=== PATIENT | female | born 1995 | race Caucasian/White ===

== ENCOUNTER 2021-09-27 19:50 | Emergency (ER) | payer OTHER, SELFPAY ==
--- NOTE | 2021-09-27 | ECG_ITS ---
Test Reason : CHEST PAIN Blood Pressure : / mmHG Vent. Rate : 067 BPM Atrial Rate : 067 BPM P-R Int : 158 ms QRS Dur : 078 ms QT Int : 398 ms P-R-T Axes : 026 032 020 degrees QTc Int : 420 ms Normal sinus rhythm with sinus arrhythmia Normal ECG No previous ECGs available Referred By: Generic ED Physician Electronically Signed By:SIDNEY CATES MD
--- NOTE | ~2021-09-27 | XR_ITS ---
EXAMINATION: XR CHEST CLINICAL INFORMATION: Chest pain COMPARISON: None TECHNIQUE: 2 views of the chest were obtained. FINDINGS: No significant abnormality is noted involving the heart, lungs, mediastinum, bony thorax or soft tissues. XR/XR chest 2V IMPRESSION: Unremarkable examination.
[2021-09-27 20:52] VITALS: BP 102/65; PULSE 66; RESP 16; TEMP 36.8; O2SAT 99; BMI 30.7
[2021-09-27 21:15] LABS: MANUAL DIFF FLAG NO
[2021-09-27 21:16] LABS: Basophils Percent Auto 0.6 % (0-2); Eosinophils Absolute Auto 0.1 X10*3/uL (0.0-0.4); Hematocrit 37.6 % (37.0-47.0); Hemoglobin 12.4 g/dl (12.0-16.0); Imm Gran Abs Auto 0.01 X10*3/uL (0.00-0.03); Imm Gran Pct Auto 0.1 % (0.0-0.4); Lymphocytes Percent Auto 44.8 % (20-40); Mean Corpuscular Hemoglobin 30.2 pg (27.0-33.0); Mean Corpuscular Volume 91.7 fL (80.0-98.0); Mean Platelet Volume 10.3 fL (9.4-12.3); Monocytes Absolute Auto 0.4 X10*3/uL (0.1-1.2); Monocytes Percent Auto 5.5 % (2-11); Neutrophils Absolute Auto 3.2 x10*3/uL (2.0-8.3); Platelet Count 289 X10*3/uL (160-400); Red Cell Distribution Width 12.8 % (11.0-16.0); White Blood Count 6.7 X10*3/uL (4.8-10.8)
[2021-09-27 21:30] LABS: COVID-19 Test Negative (Negative)
[2021-09-27 21:34] LABS: Alanine Aminotransferase 8 U/L (0-31); Albumin Level 4.2 g/dL (3.5-5.0); Alkaline Phosphatase 95 U/L (39-117); Anion Gap 12 (12-20); Aspartate Amino Transferase 15 U/L (5-31); Bilirubin Total 0.3 mg/dL (0.0-1.0); Blood Urea Nitrogen 16 mg/dL (9-16); Calcium 9.3 mg/dL (8.4-10.2); Carbon Dioxide 25 mmol/L (22-29); Chloride 107 mmol/L (96-108); Creatinine Clr Calc Pharmacy 106.3; Estimated Glomerular Filt Rate > 60; Glucose Random 88 mg/dL (60-115); Potassium 4.4 mmol/L (3.3-5.1); Sodium 140 mmol/L (135-145); Total Protein 6.9 g/dL (6.5-8.0)
[2021-09-27 21:36] LABS: Troponin-I High Sensitivity < 3.5 ng/L (<3.5-17.0)
[2021-09-27 22:55] LABS: HCG Quantitative < 2 mIU/mL
--- NOTE | 2021-09-27 23:09 | ED_ITS ---
HPI - General Adult General Chief complaint: General Medical Stated complaint: chest pain, vomiting, dizziness Time Seen by Provider: 09/27/21 22:03 Source: patient Mode of arrival: ambulatory Limitations: no limitations History of Present Illness HPI narrative: 26-year-old female presents for approximately 2 months of chest pain that feels like a squeezing tightness around her heart and throughout her lungs. States that she has been out of her medications, has asthma, and does not have an established primary care physician she was evaluated at urgent care earlier today refer to emergency department for further evaluation. She also complains of left lower extremity pain. Onset (ago): month(s) (2) Location: chest, left and lower extremity Radiation: non-radiation Severity: severe Severity scale (1-10): 10 Quality: stabbing and crushing Pain Consistency: intermittent Relieving factors: none Exacerbating factors: none Associated symptoms: denies other symptoms Treatments prior to arrival: none Related Data Previous Rx's Medication Instructions Recorded albuterol sulfate 90 mcg/actuation 2 puff INHALATION Q4-6H PRN #8.5 g 09/28/21 aerosol inhaler escitalopram oxalate 20 mg tablet 30 mg PO DAILY 30 Days #45 tab 09/28/21 (Lexapro) quetiapine 100 mg tablet (Seroquel) 150 mg PO BEDTIME 30 Days #45 tab 09/28/21 Allergies Allergy/AdvReac Type Severity Reaction Status Date / Time acetaminophen Allergy Hives Verified 09/27/21 20:52 sulfamethoxazole Allergy Hives Verified 09/27/21 20:52 [From Bactrim] trimethoprim [From Bactrim] Allergy Hives Verified 09/27/21 20:52 Review of Systems Review of Systems: Constitutional: No Weight loss, No Fever, No Chills, No Night Sweats, No Fatigue, No Malaise ENT/Mouth: No Hearing loss, No Ear Pain, No Nasal Congestion, No Sinus Pain, No Hoarseness, No sore throat, No Rhinorrhea, No Swallowing Difficulty Eyes: No Eye Pain, No Swelling, No Redness, No Foreign Body, No Discharge, No Vision Changes Cardiovascular: Positive Chest Pain, no SOB, no Dyspnea on Exertion, No Orthopnea, No Edema, positive Palpitations Respiratory: No Cough, No Sputum, No Wheezing, No Smoke Exposure, No Dyspnea Gastrointestinal: No Nausea, No Vomiting, No Diarrhea, No abdominal Pain, No Hematochezia, No Melena Genitourinary: No irregular bleeding, No Dysuria, No Urinary Frequency, No Hematuria, No Urinary Incontinence, No Urgency, No Flank Pain, No Urinary Flow Changes, No Hesitancy Musculoskeletal: Positive lower extremities pain, No joint pain, No Myalgias, No Joint Swelling Skin: No Skin Lesions, No rash Neuro: No Weakness, No Numbness, No Paresthesias, No Loss of Consciousness, No Dizziness, No Headache Psych: No Anxiety/Panic, No Depression, No SI/HI/AH/VH Heme/Lymph: No Bruising, No Bleeding,No Lymphadenopathy Endocrine: No Polyuria, No Polydipsia, No Temperature Intolerance Yes all other systems are reviewed and are negative [facility] Past Medical History Attestation statement: The following information was validated with the patient. Source: old records reviewed Medical History Asthma Insomnia Social History Social History Patient Tobacco Use Status: Never used Tobacco Use of substances other than those prescribed or required for medical reasons: No Advance Directives: No Advance Directives Information Provided: Yes Patient : No Physical Exam ED Vital Signs: Vital Signs - 24 hr 09/27/21 20:52 Temperature 98.3 F Pulse Rate 66 Respiratory Rate 16 Blood Pressure 102/65 Pulse Oximetry 99 BMI result Body Mass Index 30.7 Appearance: Alert. Oriented X3. No acute distress. Eyes: Pupils equal, round and reactive to light. EOMI. Sclera nonicteric. ENT: Pharynx normal. Moist mucous membranes. Neck: Normal inspection. Neck supple. No vertebral tenderness. No nuchal rigidity. CVS: Normal heart rate and rhythm. Pulses normal. Reproducible chest wall tenderness to palpation. Respiratory: No respiratory distress. Lung sounds clear to auscultation all lobes. No pain on inspiration. Abdomen: Soft and tender to palpation throughout. No rigidity, rebound, or distention noted. Skin: Skin warm and dry. Normal skin color. Normal skin turgor. Extremities: No lower extremity edema. Gait well-balanced well coordinated. Moves all extremities against resistance. Strength 5/5. Neuro: No motor deficit. No sensory deficit. Cranial nerves 2-12 intact. Course Course Course Narrative: 26-year-old female presents for squeezing stabbing chest pain that has been present for approximately 2 months. Also reports left lateral lower extremity pain, feels like a vessel is on fire radiating from her malleolar process up to her knee. Does not report any swelling. Was evaluated at urgent care earlier today then referred to the emergency department for further evaluation. EKG and labs drawn while patient was in the emergency department waiting room. Will add on influenza, D-dimer, and urinalysis. Heart score 0. Wells PE score 0. 00:31 chest x-ray is negative. D-dimer is negative. Influenza negative. Will discharge home with referrals for Primary Care, pulmonology and refill her prescriptions for Lexapro.Patient verbalized understanding of and agrees to plan of care to discharge home. Verbalized understanding of signs and symptoms indicating need for emergent intervention Medical Decision Making MDM Narrative Medical decision making narrative: PE Differential Diagnosis Differential Diagnosis: Asthma, costochondritis, rib fracture, pneumo, anxiety, influenza, COVID Medical Records Medical records reviewed: Yes I reviewed the patient's medical records. Lab Data Lab results reviewed: Yes I reviewed the patient's lab results. Result diagrams: 09/27/21 21:09 09/27/21 21:09 Labs: Lab Results 09/27/21 09/27/21 09/27/21 Range/Units 21:09 21:09 21:09 WBC 6.7 (4.8-10.8) X10*3/uL RBC 4.10 L (4.20-5.50) X10*6/uL Hgb 12.4 (12.0-16.0) g/dl Hct 37.6 (37.0-47.0) % MCV 91.7 (80.0-98.0) fL MCH 30.2 (27.0-33.0) pg MCHC 33.0 (31.0-35.0) g/dl RDW 12.8 (11.0-16.0) % Plt Count 289 (160-400) X10*3/uL MPV 10.3 (9.4-12.3) fL Immature Gran % (Auto) 0.1 (0.0-0.4) % Neut % (Auto) 48.0 (45-73) % Lymph % (Auto) 44.8 H (20-40) % [place] % (Auto) 5.5 (2-11) % Eos % (Auto) 1.0 (0-4) % Baso % (Auto) 0.6 (0-2) % Lymph # (Auto) 3.0 (1.2-4.9) X10*3/uL [place] # (Auto) 0.4 (0.1-1.2) X10*3/uL Eos # (Auto) 0.1 (0.0-0.4) X10*3/uL Baso # (Auto) 0.0 (0.0-0.2) X10*3/uL Abs Immat Gran (auto) 0.01 (0.00-0.03) X10*3/uL Absolute Neuts (auto) 3.2 (2.0-8.3) x10*3/uL Absolute Nucleated RBC 0.000 (0.0-0.012) X10*3/uL Nucleated RBC % (auto) 0.0 (0.0-0.2) /100WBC D-Dimer High Sensitivty NG/ML Sodium 140 (135-145) mmol/L Potassium 4.4 (3.3-5.1) mmol/L Chloride 107 (96-108) mmol/L Carbon Dioxide 25 (22-29) mmol/L Anion Gap 12 (12-20) BUN 16 (9-16) mg/dL Creatinine 0.75 (0.5-1.4) mg/dL Estim Creat Clear Calc 106.3 Estimated GFR > 60 Random Glucose 88 (60-115) mg/dL Calcium 9.3 (8.4-10.2) mg/dL Total Bilirubin 0.3 (0.0-1.0) mg/dL AST 15 (5-31) U/L ALT 8 (0-31) U/L Alkaline Phosphatase 95 (39-117) U/L Troponin I High Sens < 3.5 (<3.5-17.0) ng/L Total Protein 6.9 (6.5-8.0) g/dL Albumin 4.2 (3.5-5.0) g/dL Beta HCG, Quant < 2 mIU/mL Urine Color Urine Appearance Urine pH (5.0-8.0) Ur Specific [place] (1.005-1.025) Urine Protein (NEG-TRACE) MG/DL Urine Glucose (UA) (NEG) MG/DL Urine Ketones (NEG) MG/DL Urine Blood (NEG) Urine Nitrite (NEG) Ur Leukocyte Esterase (NEG) Urine RBC (0) /HPF Urine WBC (0-4) /HPF Ur Squamous Epith Cells /LPF Urine Bacteria /LPF COVID-19 (CHARLENE) (Negative) COVID-19 Clin Com Influenza Type A (DORON) (Negative) Influenza Type B (DORON) (Negative) Influenza A & B Note 09/27/21 09/27/21 09/27/21 Range/Units 21:09 23:41 23:51 WBC (4.8-10.8) X10*3/uL RBC (4.20-5.50) X10*6/uL Hgb (12.0-16.0) g/dl Hct (37.0-47.0) % MCV (80.0-98.0) fL MCH (27.0-33.0) pg MCHC (31.0-35.0) g/dl RDW (11.0-16.0) % Plt Count (160-400) X10*3/uL MPV (9.4-12.3) fL Immature Gran % (Auto) (0.0-0.4) % Neut % (Auto) (45-73) % Lymph % (Auto) (20-40) % [place] % (Auto) (2-11) % Eos % (Auto) (0-4) % Baso % (Auto) (0-2) % Lymph # (Auto) (1.2-4.9) X10*3/uL [place] # (Auto) (0.1-1.2) X10*3/uL Eos # (Auto) (0.0-0.4) X10*3/uL Baso # (Auto) (0.0-0.2) X10*3/uL Abs Immat Gran (auto) (0.00-0.03) X10*3/uL Absolute Neuts (auto) (2.0-8.3) x10*3/uL Absolute Nucleated RBC (0.0-0.012) X10*3/uL Nucleated RBC % (auto) (0.0-0.2) /100WBC D-Dimer High Sensitivty < 150 NG/ML Sodium (135-145) mmol/L Potassium (3.3-5.1) mmol/L Chloride (96-108) mmol/L Carbon Dioxide (22-29) mmol/L Anion Gap (12-20) BUN (9-16) mg/dL Creatinine (0.5-1.4) mg/dL Estim Creat Clear Calc Estimated GFR Random Glucose (60-115) mg/dL Calcium (8.4-10.2) mg/dL Total Bilirubin (0.0-1.0) mg/dL AST (5-31) U/L ALT (0-31) U/L Alkaline Phosphatase (39-117) U/L Troponin I High Sens (<3.5-17.0) ng/L Total Protein (6.5-8.0) g/dL Albumin (3.5-5.0) g/dL Beta HCG, Quant mIU/mL Urine Color Urine Appearance Urine pH (5.0-8.0) Ur Specific [place] (1.005-1.025) Urine Protein (NEG-TRACE) MG/DL Urine Glucose (UA) (NEG) MG/DL Urine Ketones (NEG) MG/DL Urine Blood (NEG) Urine Nitrite (NEG) Ur Leukocyte Esterase (NEG) Urine RBC (0) /HPF Urine WBC (0-4) /HPF Ur Squamous Epith Cells /LPF Urine Bacteria /LPF COVID-19 (CHARLENE) Negative (Negative) COVID-19 Clin Com See Note Influenza Type A (DORON) Negative (Negative) Influenza Type B (DORON) Negative (Negative) Influenza A & B Note See Note 09/27/21 Range/Units 23:51 WBC (4.8-10.8) X10*3/uL RBC (4.20-5.50) X10*6/uL Hgb (12.0-16.0) g/dl Hct (37.0-47.0) % MCV (80.0-98.0) fL MCH (27.0-33.0) pg MCHC (31.0-35.0) g/dl RDW (11.0-16.0) % Plt Count (160-400) X10*3/uL MPV (9.4-12.3) fL Immature Gran % (Auto) (0.0-0.4) % Neut % (Auto) (45-73) % Lymph % (Auto) (20-40) % [place] % (Auto) (2-11) % Eos % (Auto) (0-4) % Baso % (Auto) (0-2) % Lymph # (Auto) (1.2-4.9) X10*3/uL [place] # (Auto) (0.1-1.2) X10*3/uL Eos # (Auto) (0.0-0.4) X10*3/uL Baso # (Auto) (0.0-0.2) X10*3/uL Abs Immat Gran (auto) (0.00-0.03) X10*3/uL Absolute Neuts (auto) (2.0-8.3) x10*3/uL Absolute Nucleated RBC (0.0-0.012) X10*3/uL Nucleated RBC % (auto) (0.0-0.2) /100WBC D-Dimer High Sensitivty NG/ML Sodium (135-145) mmol/L Potassium (3.3-5.1) mmol/L Chloride (96-108) mmol/L Carbon Dioxide (22-29) mmol/L Anion Gap (12-20) BUN (9-16) mg/dL Creatinine (0.5-1.4) mg/dL Estim Creat Clear Calc Estimated GFR Random Glucose (60-115) mg/dL Calcium (8.4-10.2) mg/dL Total Bilirubin (0.0-1.0) mg/dL AST (5-31) U/L ALT (0-31) U/L Alkaline Phosphatase (39-117) U/L Troponin I High Sens (<3.5-17.0) ng/L Total Protein (6.5-8.0) g/dL Albumin (3.5-5.0) g/dL Beta HCG, Quant mIU/mL Urine Color YELLOW Urine Appearance CLEAR Urine pH 6.0 (5.0-8.0) Ur Specific [place] 1.020 (1.005-1.025) Urine Protein NEG (NEG-TRACE) MG/DL Urine Glucose (UA) NEG (NEG) MG/DL Urine Ketones NEG (NEG) MG/DL Urine Blood 3+ H (NEG) Urine Nitrite NEG (NEG) Ur Leukocyte Esterase NEG (NEG) Urine RBC 1-4 (0) /HPF Urine WBC 0-2 (0-4) /HPF Ur Squamous Epith Cells TRACE /LPF Urine Bacteria NONE /LPF COVID-19 (CHARLENE) (Negative) COVID-19 Clin Com Influenza Type A (DORON) (Negative) Influenza Type B (DORON) (Negative) Influenza A & B Note Imaging Data Chest x-ray: Attestation: I personally reviewed and interpreted this imaging study as follows: Radiologist's impression: EXAMINATION: XR CHEST CLINICAL INFORMATION: Chest pain COMPARISON: None TECHNIQUE: 2 views of the chest were obtained. FINDINGS: No significant abnormality is noted involving the heart, lungs, mediastinum, bony thorax or soft tissues. XR/XR chest 2V IMPRESSION: Unremarkable examination. ECG Data Attestation: I personally reviewed and interpreted this ECG as follows: Prior ECG tracings: not available for review Interpretation: Ventricular rate 67, HI 158, QRS 78, QT 398, QTC 420 normal sinus rhythm with sinus arrhythmia normal EKG. No indication of ST depression or elevation. Date 09/27/2021 time 20:01 Scores Heart Score History: -0- slightly suspicious ECG: -0- normal Age: -0- < or = 45 Risk factory: -0- no risk factors known Troponin: -0- < or = normal limit Score: 0 Risk: 1.7% Discharge Plan Discharge Clinical Impression: Non-cardiac chest pain Patient Disposition: Home, Self-Care Instructions: Noncardiac Chest Pain (ED) Additional Instructions: You were evaluated for chest and leg pain. D-dimer is negative. Highly unlikely to have any blood clots. Chest x-ray is normal. EKG is normal sinus rhythm. Cardiac enzymes are negative. Low likely cardiac ischemia at this time. Influenza and COVID are negative. I refilled her medications. Please take them as directed. Follow-up with Dr. Gonzalez for primary care. Please follow-up with Dr. 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 Thank you for choosing this emergency department for evaluation. Please follow-up with primary care physician as needed. Return to the emergency department for any new, concerning, or worsening symptoms. Prescriptions: New escitalopram oxalate [Lexapro] 20 mg tablet 30 mg PO DAILY 30 Days Qty: 45 3RF quetiapine [Seroquel] 100 mg tablet 150 mg PO BEDTIME 30 Days Qty: 45 3RF albuterol sulfate 90 mcg/actuation HFA aerosol inhaler 2 puff inhalation Q4-6H PRN (Reason: shortness of breath or wheezing) Qty: 8.5 3RF Referrals: Marito Gonzalez MD [Physician] - (Needs primary care) Bryon Holland MD [Physician] - (Uncontrolled asthma) Stand Alone Forms: Work/School Release
[2021-09-28] VITALS: BP 131/79; PULSE 59; RESP 16; TEMP 36.6; O2SAT 98
[2021-09-28 00:05] LABS: Appearance Urine CLEAR; Color Urine YELLOW; Glucose Urine UA NEG (NEG); Leukocyte Esterase Urine NEG (NEG); Nitrite Urine NEG (NEG); UACC Culture Trigger NO; Urine Blood 3+ (NEG); Urine Ketones NEG (NEG); Urine Protein NEG (NEG-TRACE)
[2021-09-28 00:12] LABS: D Dimer High Sensitivity < 150 NG/ML
[2021-09-28 00:24] LABS: WBC Urine 0-2 /HPF (0-4)
[2021-09-28 00:24] LABS: Influenza A Negative (Negative); Influenza B2 Negative (Negative)
[2021-09-28 00:25] LABS: Squamous Epithelial Cell Urine TRACE /LPF
--- NOTE | 2021-09-28 00:28 | PC.NURSE ---
pt is a&o, no sob or chest pain, pt reports dizziness has improved. Pt is sitting upright in bed with no sign of distress.
== END 2021-09-28 00:58 | disposition home or self-care (01) ==
PROVIDERS: Nurse Practitioner Family; Student in an Organized Health Care Education/Training Program; Emergency Provider Internal Medicine
DX: R07.89 Other chest pain (principal); R11.10 Vomiting, unspecified; R42 Dizziness and giddiness; Z20.822 Contact with and (suspected) exposure to COVID-19; Z79.899 Other long term (current) drug therapy
CPT/HCPCS: 36415; 71046; 80053; 81001; 81003; 84484; 84702; 85025; 85379; 87502; 87635; 93005; 99283; 99284

== ENCOUNTER 2021-10-25 15:04 | Outpatient (REF) | payer OTHER, SELFPAY ==
[2021-10-25 16:08] LABS: MANUAL DIFF FLAG NO
[2021-10-25 16:25] LABS: Basophils Percent Auto 0.5 % (0-2); Eosinophils Absolute Auto 0.1 X10*3/uL (0.0-0.4); Eosinophils Percent Auto 0.6 % (0-4); Hematocrit 37.7 % (37.0-47.0); Hemoglobin 12.9 g/dl (12.0-16.0); Imm Gran Abs Auto 0.02 X10*3/uL (0.00-0.03); Imm Gran Pct Auto 0.3 % (0.0-0.4); Lymphocytes Absolute Auto 2.8 X10*3/uL (1.2-4.9); Lymphocytes Percent Auto 35.6 % (20-40); Mean Corpuscular HGB Conc 34.2 g/dl (31.0-35.0); Mean Corpuscular Hemoglobin 30.1 pg (27.0-33.0); Mean Corpuscular Volume 88.1 fL (80.0-98.0); Mean Platelet Volume 10.4 fL (9.4-12.3); Monocytes Absolute Auto 0.6 X10*3/uL (0.1-1.2); Monocytes Percent Auto 7.1 % (2-11); Neutrophils Absolute Auto 4.4 x10*3/uL (2.0-8.3); Neutrophils Percent Auto 55.9 % (45-73); Platelet Count 296 X10*3/uL (160-400); Red Blood Count 4.28 X10*6/uL (4.20-5.50); Red Cell Distribution Width 12.3 % (11.0-16.0); White Blood Count 7.8 X10*3/uL (4.8-10.8)
[2021-10-25 17:01] LABS: TSH reflex Free T4 1.73 uIU/mL (0.32-4.0)
[2021-10-25 17:07] LABS: Erythrocyte Sedimentation Rate 7 MM/HR (0-20)
[2021-10-30 14:41] LABS: Asperg fumigatus Precip Abs NEGATIVE (NEGATIVE); Micropoly faeni Abs NEGATIVE (NEGATIVE); Pigeon serum Abs NEGATIVE (NEGATIVE); Saccharo pora viridis Abs NEGATIVE (NEGATIVE); Thermo candidus Abs NEGATIVE (NEGATIVE); Thermoa vulgaris #1 NEGATIVE (NEGATIVE)
== END 2021-10-25 15:05 | disposition home or self-care (01) ==
LOC: HO.LAB 15:04
PROVIDERS: PCP Hospitalist; Visit Provider Hospitalist
DX: R07.81 Pleurodynia (principal); R91.8 Other nonspecific abnormal finding of lung field; R68.89 Other general symptoms and signs; J45.40 Moderate persistent asthma, uncomplicated
CPT/HCPCS: 36415; 82785; 84443; 85025; 85652; 86003; 86331; 86606; 86609

== ENCOUNTER 2021-11-11 10:35 | Emergency (ER) | payer OTHER, SELFPAY ==
[2021-11-11] VITALS (8 sets, daily range): BP systolic 112–129; BP diastolic 63–77; PULSE 61–72; RESP 16–18; TEMP 36.7–36.9; O2SAT 98–100; BMI 29.1
--- NOTE | ~2021-11-11 | XR_ITS ---
EXAMINATION: XR CHEST CLINICAL INFORMATION: Shortness of breath. Chest pain. COMPARISON: 09/27/2021 TECHNIQUE: Frontal view of the chest was obtained. FINDINGS: The lungs are well expanded. There is no focal consolidation, edema, or effusion. No pneumothorax. The cardiomediastinal silhouette is within normal limits. No acute osseous abnormality. XR/XR chest 1V IMPRESSION: Clear lungs.
--- NOTE | ~2021-11-11 | CT_ITS ---
EXAMINATION: CT ABDOMEN AND PELVIS WITHOUT CONTRAST CLINICAL INFORMATION: Left lower quadrant/epigastric abdominal pain. Nausea, vomiting, diarrhea. COMPARISON: None TECHNIQUE: Multidetector volumetric imaging was performed from the superior aspect of the liver through the pubic symphysis. Sagittal and coronal reformatted images were obtained on the technologist's workstation. This CT examination was performed using dose optimization techniques as appropriate, variously including the following: *Automated exposure control *Adjustment of mA and/or kV according to patient size (this includes techniques or standardized protocols for targeted exams where dose is matched to indication/reason for exam; i.e. extremities or head) *Use of iterative reconstruction technique DLP: 581 mGy-cm FINDINGS: LUNG BASES: The visualized lung bases are unremarkable. LIVER, GALLBLADDER, AND BILIARY TREE: The liver is normal in size, shape, and attenuation. No focal hepatic lesion or biliary ductal dilatation is present. The gallbladder is unremarkable with no evidence of radiopaque gallstones, gallbladder wall thickening, or obvious pericholecystic inflammatory changes. PANCREAS: Unremarkable. SPLEEN: Unremarkable. ADRENAL GLANDS: Unremarkable. KIDNEYS AND URETERS: The kidneys are normal in size, shape, and attenuation. No hydronephrosis, hydroureter, or calculi seen. No perinephric stranding. BLADDER: Unremarkable. GASTROINTESTINAL TRACT: The stomach is unremarkable. Normal caliber small bowel. No obstruction. No colonic wall thickening or inflammatory change. Normal appendix. No free air or free fluid. ABDOMINAL WALL: No significant hernia is appreciated. LYMPH NODES: Normal. VASCULAR: Unremarkable. PELVIC VISCERA: Retroverted uterus. No adnexal mass. OSSEOUS STRUCTURES: No acute or suspicious osseous abnormality. CT/CT abdomen pelvis wo con IMPRESSION: No acute findings in the abdomen or pelvis. No inflammatory changes. Normal appendix. Fleischner guidelines were followed.
--- NOTE | 2021-11-11 11:01 | ECG_ITS ---
Test Reason : abd and chest pain Blood Pressure : / mmHG Vent. Rate : 061 BPM Atrial Rate : 061 BPM P-R Int : 146 ms QRS Dur : 078 ms QT Int : 400 ms P-R-T Axes : 054 038 028 degrees QTc Int : 402 ms Sinus rhythm with marked sinus arrhythmia Otherwise normal ECG When compared with ECG of 27-SEP-2021 20:01, No significant change was found Referred By: Generic ED Physician Electronically Signed By:SIDNEY CATES MD
[2021-11-11 11:17] LABS: Hematocrit 38.5 % (37.0-47.0); Mean Corpuscular HGB Conc 33.8 g/dl (31.0-35.0); Mean Corpuscular Hemoglobin 30.4 pg (27.0-33.0); Mean Platelet Volume 10.2 fL (9.4-12.3); Platelet Count 286 X10*3/uL (160-400); Red Blood Count 4.28 X10*6/uL (4.20-5.50); Red Cell Distribution Width 12.5 % (11.0-16.0); White Blood Count 5.7 X10*3/uL (4.8-10.8)
[2021-11-11 11:33] LABS: Anion Gap 14 (12-20); Blood Urea Nitrogen 15 mg/dL (9-16); Calcium 9.7 mg/dL (8.4-10.2); Carbon Dioxide 25 mmol/L (22-29); Chloride 105 mmol/L (96-108); Creatinine Clr Calc Pharmacy 102.1; Estimated Glomerular Filt Rate > 60; Glucose Random 95 mg/dL (60-115); Lipase 10 U/L (8-78); Potassium 4.6 mmol/L (3.3-5.1); Sodium 139 mmol/L (135-145)
--- NOTE | 2021-11-11 13:08 | PC.NURSE ---
Pt comes in with complaints of LLQ abd pain, N/V/D x 3 weeks, sent from urgent care for multiple complaints, saw new PCP on 11/03 and states she isn't calling her back and she is waiting for blood work scripts as well as specialists to follow up with. Pt appears very anxious, states she thinks something is wrong with her thyroid and would like us to do blood work for it since her PCP isn't answering her calls. Pt is A&Ox4, TTP in LLQ only at this time. Report to Manju JACKSON.
[2021-11-11] MEDS: 0.9 % Sodium Chloride 1,000 ML 999 ML IV ×2 (13:35→15:30)
[2021-11-11] MEDS: ondansetron HCL 4 MG/2 ML VIAL IVPUSH (13:37)
--- NOTE | 2021-11-11 13:37 | ED_ITS ---
HPI - General Adult General Chief complaint: Abdominal Pain Stated complaint: abd and chest pain Time Seen by Provider: 11/11/21 13:11 Source: patient Mode of arrival: ambulatory History of Present Illness HPI narrative: 26-year-old female with a past medical history of asthma, insomnia, pleuritic chest pain, cold intolerance, presenting to the ED complaining of chest pain, shortness of breath, abdominal pain, lightheadedness/generalized fatigue x months, and nausea, vomiting, and nonbloody diarrhea x3 weeks. Also reports subjective fever and chills, and unintentional weight loss over the past 6 months. Denies headache, constipation, dysuria/hematuria, recent travel, suspicious food intake. LMP 11/05 Onset (ago): month(s) Related Data Previous Rx's Medication Instructions Recorded albuterol sulfate 90 mcg/actuation 2 puff INHALATION Q4-6H PRN #8.5 g 09/28/21 aerosol inhaler escitalopram oxalate 20 mg tablet 30 mg PO DAILY 30 Days #45 tab 09/28/21 (Lexapro) quetiapine 100 mg tablet (Seroquel) 150 mg PO BEDTIME 30 Days #45 tab 09/28/21 fluticasone furoate 200 1 inh INHALATION DAILY 30 Days #60 10/25/21 mcg-vilanterol 25 mcg/dose ea inhalation powder (Breo Ellipta) lidocaine 5 % topical patch 1 patch TOPICAL DAILY 30 Days #30 10/25/21 (Lidoderm) ea prednisone 20 mg tablet See Rx Instructions PO DAILY 10 11/10/21 Days #15 tab ondansetron 4 mg disintegrating 4 mg PO Q8H PRN #10 tab 11/11/21 tablet Allergies Allergy/AdvReac Type Severity Reaction Status Date / Time acetaminophen Allergy Hives Verified 11/03/21 14:35 sulfamethoxazole Allergy Hives Verified 11/03/21 14:35 [From Bactrim] trimethoprim [From Bactrim] Allergy Hives Verified 11/03/21 14:35 Review of Systems Review of Systems: Constitutional: + Weight loss, +Subj Fever, + Chills, No Night Sweats, + Fatigue, + Malaise ENT/Mouth: No Ear Pain, No Nasal Congestion, No Sinus Pain, No sore throat, No Rhinorrhea, No Swallowing Difficulty Eyes: No Eye Pain, No Swelling, No Vision Changes Cardiovascular: + Chest Pain, + SOB, No Dyspnea on Exertion, No Orthopnea, No Edema, No Palpitations Respiratory: No Cough, No Sputum, No Wheezing, No Dyspnea Gastrointestinal: + Nausea, + Vomiting, + Diarrhea, No Constipation, + Abdominal pain, No Hematochezia, No Melena Genitourinary: No irregular bleeding, No Dysuria, No Urinary Frequency, No Hematuria, No Flank Pain, No Urinary Flow Changes, No Hesitancy Musculoskeletal: No joint pain, No Myalgias, No Joint Swelling Skin: No Skin Lesions, No rash Neuro: + Weakness, No Numbness, No Paresthesias, No Loss of Consciousness, + lightheadedness, No Headache Psych: No Anxiety/Panic, No Depressin, Yes all other systems are reviewed and are negative Neurologic: Denies Abnormal speech present [facility] Past Medical History Attestation statement: The following information was validated with the patient. Medical History Asthma Asthma Cold intolerance Insomnia Pleuritic chest pain Family History Family History Mother Hyperthyroidism Asthma Hypertension High cholesterol No family history of mental disorder Maternal Grandmother Asthma Hypothyroidism Hypertension High cholesterol Social History Social History Housing: House Patient Tobacco Use Status: Never used Tobacco Advance Directives: No Advance Directives Information Provided: No service: No Current occupational status: employed Cognitive needs: No Hearing needs: No Vision needs: No Physical Exam ED Vital Signs: Vital Signs - 24 hr 11/11/21 10:56 11/11/21 12:59 11/11/21 13:38 Temperature 98.2 F 98.1 F Pulse Rate 68 61 70 Respiratory Rate 18 16 18 Blood Pressure 112/75 116/77 129/69 Pulse Oximetry 100 99 99 11/11/21 13:41 11/11/21 15:51 11/11/21 15:52 Temperature 98.3 F Pulse Rate 70 72 66 Respiratory Rate 18 Blood Pressure 129/69 115/69 122/63 Pulse Oximetry 99 11/11/21 15:53 11/11/21 15:55 Temperature 98.4 F Pulse Rate 72 72 Respiratory Rate 16 Blood Pressure 122/68 122/68 Pulse Oximetry 98 BMI result Body Mass Index 29.1 Const General: cooperative, healthy appearing, no acute distress, alert and awake Orientation/consciousness: patient oriented x3 Limitations: no limitations HENMT Head: Yes normal to inspection and Yes atraumatic Ears: hearing grossly normal bilaterally General nose exam: Normal external nose present Face and sinus: Yes normal facial exam Throat: Yes posterior oropharynx normal Eyes General: appearance normal, both eyes and all related structures Pupils: Equal, round and reactive pupils present EOM: EOMs intact bilaterally Neck Neck: Yes normal visual inspection and Yes no meningeal signs Resp Effort & Inspection: normal respiratory effort and no respiratory distress Auscultation: clear to auscultation bilaterally, no rales, no rhonchi and no wheezes Cardio Rate: regular rate Heart sounds: S1 normal heart sound present and S2 normal heart sound present GI Inspection: Yes normal to inspection Palpation (GI): Soft to palpation, Tenderness to palpation present (GI) in the epigastrum and in the LLQ; Negative for with no rebound tenderness, no guarding and not rigid General: Yes no CVA tenderness Back/Spine/Pelvis Back: no CVA tenderness Skin Rashes: no rashes Wounds: no wounds Neuro General: patient oriented x3, gait normal, tone normal, moves all extremities, no meningeal signs, no focal motor deficits and CN's II-XI intact bilaterally Cranial nerves: Yes Equal, round and reactive pupils present Cognition (Neuro): normal cognition Speech: No Abnormal speech present Gait exam (Neuro): Normal gait present Extrem General: Yes normal to inspection and Yes no pedal edema Course Course Course Narrative: -1434--no leukocytosis. Labs otherwise unremarkable. Troponin negative. TSH WNL. -UA with greater than 80 ketones, no infection >> will give 2L IVF XR chest 1V IMPRESSION: Clear lungs. CT abdomen pelvis wo con IMPRESSION: No acute findings in the abdomen or pelvis. No inflammatory changes. Normal appendix.? ? Fleischner guidelines were followed. -patient tolerated p.o. in the ED without nausea or vomiting. Discussed results including worrisome signs and symptoms and strict return precautions and needed close follow-up with PCP, she verbalized understanding and feels safe for discharge Medical Decision Making MDM Narrative Medical decision making narrative: 26-year-old female with a past medical history of asthma, insomnia, pleuritic chest pain, cold intolerance, presenting to the ED complaining of chest pain, shortness of breath, abdominal pain, lightheadedness/generalized fatigue x mo nths, and nausea, vomiting, and nonbloody diarrhea x3 weeks. Also reports subjective fever and chills, and unintentional weight loss over the past 6 months. On exam vital signs stable, NAD, nontoxic appearing, lungs CTA, abdomen soft with LLQ and epigastric tenderness, no rebound or guarding. Concern for viral illness vs metabolic/infectious etiologies vs thyroid disorder. R/o diverticulitis. Symptoms atypical for ACS/PE. Plan: EKG, labs, UA, CXR, CTAP, orthostatics, IVF, re-evaluate Medical Records Medical records reviewed: Yes I reviewed the patient's medical records. Lab Data Lab results reviewed: Yes I reviewed the patient's lab results. Result diagrams: 11/11/21 15:03 11/11/21 11:07 Labs: Lab Results 11/11/21 11/11/21 11/11/21 Range/Units 11:07 11:07 11:07 WBC 5.7 (4.8-10.8) X10*3/uL RBC 4.28 (4.20-5.50) X10*6/uL Hgb 13.0 (12.0-16.0) g/dl Hct 38.5 (37.0-47.0) % MCV 90.0 (80.0-98.0) fL MCH 30.4 (27.0-33.0) pg MCHC 33.8 (31.0-35.0) g/dl RDW 12.5 (11.0-16.0) % Plt Count 286 (160-400) X10*3/uL MPV 10.2 (9.4-12.3) fL Immature Gran % (Auto) (0.0-0.4) % Neut % (Auto) (45-73) % Lymph % (Auto) (20-40) % Hitchcock % (Auto) (2-11) % Eos % (Auto) (0-4) % Baso % (Auto) (0-2) % Lymph # (Auto) (1.2-4.9) X10*3/uL Hitchcock # (Auto) (0.1-1.2) X10*3/uL Eos # (Auto) (0.0-0.4) X10*3/uL Baso # (Auto) (0.0-0.2) X10*3/uL Abs Immat Gran (auto) (0.00-0.03) X10*3/uL Absolute Neuts (auto) (2.0-8.3) x10*3/uL Absolute Nucleated RBC 0.000 (0.0-0.012) X10*3/uL Nucleated RBC % (auto) 0.0 (0.0-0.2) /100WBC Sodium 139 (135-145) mmol/L Potassium 4.6 (3.3-5.1) mmol/L Chloride 105 (96-108) mmol/L Carbon Dioxide 25 (22-29) mmol/L Anion Gap 14 (12-20) BUN 15 (9-16) mg/dL Creatinine 0.76 (0.5-1.4) mg/dL Estim Creat Clear Calc 102.1 Estimated GFR > 60 Random Glucose 95 (60-115) mg/dL Calcium 9.7 (8.4-10.2) mg/dL Magnesium 2.1 (1.6-2.6) mg/dL Total Bilirubin 0.8 (0.0-1.0) mg/dL Direct Bilirubin 0.3 (0.0-0.5) mg/dL AST 14 (5-31) U/L ALT 10 (0-31) U/L Alkaline Phosphatase 79 (39-117) U/L Troponin I High Sens < 3.5 (<3.5-17.0) ng/L Total Protein 7.2 (6.5-8.0) g/dL Albumin 4.4 (3.5-5.0) g/dL Lipase 10 (8-78) U/L TSH 0.80 (0.32-4.0) uIU/mL Urine Color Urine Appearance Urine pH (5.0-8.0) Ur Specific [place] (1.005-1.025) Urine Protein (NEG-TRACE) MG/DL Urine Glucose (UA) (NEG) MG/DL Urine Ketones (NEG) MG/DL Urine Blood (NEG) Urine Nitrite (NEG) Ur Leukocyte Esterase (NEG) Urine Test (NEGATIVE) COVID-19 (CHARLENE) (Negative) COVID-19 Clin Com Influenza Type A (DORON) (Negative) Influenza Type B (DORON) (Negative) Influenza A & B Note 11/11/21 11/11/21 11/11/21 Range/Units 13:24 13:24 14:40 WBC (4.8-10.8) X10*3/uL RBC (4.20-5.50) X10*6/uL Hgb (12.0-16.0) g/dl Hct (37.0-47.0) % MCV (80.0-98.0) fL MCH (27.0-33.0) pg MCHC (31.0-35.0) g/dl RDW (11.0-16.0) % Plt Count (160-400) X10*3/uL MPV (9.4-12.3) fL Immature Gran % (Auto) (0.0-0.4) % Neut % (Auto) (45-73) % Lymph % (Auto) (20-40) % Hitchcock % (Auto) (2-11) % Eos % (Auto) (0-4) % Baso % (Auto) (0-2) % Lymph # (Auto) (1.2-4.9) X10*3/uL Hitchcock # (Auto) (0.1-1.2) X10*3/uL Eos # (Auto) (0.0-0.4) X10*3/uL Baso # (Auto) (0.0-0.2) X10*3/uL Abs Immat Gran (auto) (0.00-0.03) X10*3/uL Absolute Neuts (auto) (2.0-8.3) x10*3/uL Absolute Nucleated RBC (0.0-0.012) X10*3/uL Nucleated RBC % (auto) (0.0-0.2) /100WBC Sodium (135-145) mmol/L Potassium (3.3-5.1) mmol/L Chloride (96-108) mmol/L Carbon Dioxide (22-29) mmol/L Anion Gap (12-20) BUN (9-16) mg/dL Creatinine (0.5-1.4) mg/dL Estim Creat Clear Calc Estimated GFR Random Glucose (60-115) mg/dL Calcium (8.4-10.2) mg/dL Magnesium (1.6-2.6) mg/dL Total Bilirubin (0.0-1.0) mg/dL Direct Bilirubin (0.0-0.5) mg/dL AST (5-31) U/L ALT (0-31) U/L Alkaline Phosphatase (39-117) U/L Troponin I High Sens (<3.5-17.0) ng/L Total Protein (6.5-8.0) g/dL Albumin (3.5-5.0) g/dL Lipase (8-78) U/L TSH (0.32-4.0) uIU/mL Urine Color YELLOW Urine Appearance CLEAR Urine pH 7.0 (5.0-8.0) Ur Specific [place] 1.020 (1.005-1.025) Urine Protein NEG (NEG-TRACE) MG/DL Urine Glucose (UA) NEG (NEG) MG/DL Urine Ketones >=80 (NEG) MG/DL Urine Blood NEG (NEG) Urine Nitrite NEG (NEG) Ur Leukocyte Esterase NEG (NEG) Urine Test NEGATIVE (NEGATIVE) COVID-19 (CHARLENE) (Negative) COVID-19 Clin Com Influenza Type A (DORON) Negative (Negative) Influenza Type B (DORON) Negative (Negative) Influenza A & B Note See Note 11/11/21 11/11/21 Range/Units 14:40 15:03 WBC 5.9 (4.8-10.8) X10*3/uL RBC 3.93 L (4.20-5.50) X10*6/uL Hgb 12.1 (12.0-16.0) g/dl Hct 35.5 L (37.0-47.0) % MCV 90.3 (80.0-98.0) fL MCH 30.8 (27.0-33.0) pg MCHC 34.1 (31.0-35.0) g/dl RDW 12.4 (11.0-16.0) % Plt Count 259 (160-400) X10*3/uL MPV 10.6 (9.4-12.3) fL Immature Gran % (Auto) 0.2 (0.0-0.4) % Neut % (Auto) 43.4 L (45-73) % Lymph % (Auto) 47.4 H (20-40) % Hitchcock % (Auto) 7.4 (2-11) % Eos % (Auto) 0.9 (0-4) % Baso % (Auto) 0.7 (0-2) % Lymph # (Auto) 2.8 (1.2-4.9) X10*3/uL Hitchcock # (Auto) 0.4 (0.1-1.2) X10*3/uL Eos # (Auto) 0.1 (0.0-0.4) X10*3/uL Baso # (Auto) 0.0 (0.0-0.2) X10*3/uL Abs Immat Gran (auto) 0.01 (0.00-0.03) X10*3/uL Absolute Neuts (auto) 2.6 (2.0-8.3) x10*3/uL Absolute Nucleated RBC 0.000 (0.0-0.012) X10*3/uL Nucleated RBC % (auto) 0.0 (0.0-0.2) /100WBC Sodium (135-145) mmol/L Potassium (3.3-5.1) mmol/L Chloride (96-108) mmol/L Carbon Dioxide (22-29) mmol/L Anion Gap (12-20) BUN (9-16) mg/dL Creatinine (0.5-1.4) mg/dL Estim Creat Clear Calc Estimated GFR Random Glucose (60-115) mg/dL Calcium (8.4-10.2) mg/dL Magnesium (1.6-2.6) mg/dL Total Bilirubin (0.0-1.0) mg/dL Direct Bilirubin (0.0-0.5) mg/dL AST (5-31) U/L ALT (0-31) U/L Alkaline Phosphatase (39-117) U/L Troponin I High Sens (<3.5-17.0) ng/L Total Protein (6.5-8.0) g/dL Albumin (3.5-5.0) g/dL Lipase (8-78) U/L TSH (0.32-4.0) uIU/mL Urine Color Urine Appearance Urine pH (5.0-8.0) Ur Specific [place] (1.005-1.025) Urine Protein (NEG-TRACE) MG/DL Urine Glucose (UA) (NEG) MG/DL Urine Ketones (NEG) MG/DL Urine Blood (NEG) Urine Nitrite (NEG) Ur Leukocyte Esterase (NEG) Urine Test (NEGATIVE) COVID-19 (CHARLENE) Negative (Negative) COVID-19 Clin Com See Note Influenza Type A (DORON) (Negative) Influenza Type B (DORON) (Negative) Influenza A & B Note Discharge Plan Discharge Clinical Impression: Atypical chest pain, Abdominal pain, Nausea & vomiting Patient Disposition: Home, Self-Care Instructions: Acute Nausea and Vomiting (ED), Abdominal Pain (ED), Noncardiac Chest Pain (ED) Additional Instructions: Your blood work, CT scan, and chest x-ray were reassuring today. He tested negative for COVID-19 and the flu Zofran as antinausea medication, take as needed. Make sure your staying hydrated at home, drink water, Gatorade, Pedialyte. If you are unable to eat or drink, developed constant worsening abdominal pain, chest pain or shortness of breath please return to the ED Prescriptions: New ondansetron 4 mg tablet,disintegrating 4 mg PO Q8H PRN (Reason: nausea and vomiting) Qty: 10 0RF No Action prednisone 20 mg tablet See Rx Instructions PO DAILY 10 Days Qty: 15 0RF Rx Instructions: PO daily; Take 2 tabs daily x 5 days, then 1 tablet daily x 5 days escitalopram oxalate [Lexapro] 20 mg tablet 30 mg PO DAILY 30 Days Qty: 45 3RF quetiapine [Seroquel] 100 mg tablet 150 mg PO BEDTIME 30 Days Qty: 45 3RF albuterol sulfate 90 mcg/actuation HFA aerosol inhaler 2 puff inhalation Q4-6H PRN (Reason: shortness of breath or wheezing) Qty: 8.5 3RF Breo Ellipta 200-25 mcg/dose blister with device 1 inh inhalation DAILY 30 Days Qty: 60 11RF lidocaine [Lidoderm] 5 % adhesive patch,medicated 1 patch topical DAILY 30 Days Qty: 30 4RF Rx Instructions: leave on most painful area for up to 12 hrs Referrals: Concha Arias NP [Primary Care Provider] -
[2021-11-11 13:47] LABS: Appearance Urine CLEAR; Color Urine YELLOW; Glucose Urine UA NEG (NEG); Leukocyte Esterase Urine NEG (NEG); Nitrite Urine NEG (NEG); Urine Blood NEG (NEG); Urine Ketones >=80 MG/DL (NEG); Urine Protein NEG (NEG-TRACE)
[2021-11-11 13:48] LABS: UPreg QC Valid YES; Urine Pregnancy NEGATIVE (NEGATIVE)
[2021-11-11 13:48] LABS: Alanine Aminotransferase 10 U/L (0-31); Albumin Level 4.4 g/dL (3.5-5.0); Alkaline Phosphatase 79 U/L (39-117); Aspartate Amino Transferase 14 U/L (5-31); Bilirubin Direct 0.3 mg/dL (0.0-0.5); Bilirubin Total 0.8 mg/dL (0.0-1.0); Magnesium 2.1 mg/dL (1.6-2.6); Total Protein 7.2 g/dL (6.5-8.0)
[2021-11-11 13:58] LABS: Troponin-I High Sensitivity < 3.5 ng/L (<3.5-17.0)
[2021-11-11 15:06] LABS: Influenza A Negative (Negative); Influenza B2 Negative (Negative)
[2021-11-11 15:07] LABS: COVID-19 Test Negative (Negative); IDNOW Serial# 16C4AD1C
[2021-11-11 15:10] LABS: Basophils Percent Auto 0.7 % (0-2); Eosinophils Absolute Auto 0.1 X10*3/uL (0.0-0.4); Eosinophils Percent Auto 0.9 % (0-4); Hematocrit 35.5 % (37.0-47.0); Hemoglobin 12.1 g/dl (12.0-16.0); Imm Gran Abs Auto 0.01 X10*3/uL (0.00-0.03); Imm Gran Pct Auto 0.2 % (0.0-0.4); Lymphocytes Absolute Auto 2.8 X10*3/uL (1.2-4.9); Lymphocytes Percent Auto 47.4 % (20-40); MANUAL DIFF FLAG NO; Mean Corpuscular HGB Conc 34.1 g/dl (31.0-35.0); Mean Corpuscular Hemoglobin 30.8 pg (27.0-33.0); Mean Corpuscular Volume 90.3 fL (80.0-98.0); Mean Platelet Volume 10.6 fL (9.4-12.3); Monocytes Absolute Auto 0.4 X10*3/uL (0.1-1.2); Monocytes Percent Auto 7.4 % (2-11); Neutrophils Absolute Auto 2.6 x10*3/uL (2.0-8.3); Neutrophils Percent Auto 43.4 % (45-73); Platelet Count 259 X10*3/uL (160-400); Red Blood Count 3.93 X10*6/uL (4.20-5.50); Red Cell Distribution Width 12.4 % (11.0-16.0); White Blood Count 5.9 X10*3/uL (4.8-10.8)
--- NOTE | 2021-11-11 16:05 | PC.NURSE ---
tolerated po challenge well
== END 2021-11-11 16:39 | disposition home or self-care (01) ==
PROVIDERS: Physician Assistant; Emergency Provider Emergency Medicine; PCP Hospitalist
DX: R07.89 Other chest pain (principal); R10.9 Unspecified abdominal pain; R11.2 Nausea with vomiting, unspecified; J45.909 Unspecified asthma, uncomplicated; Z20.822 Contact with and (suspected) exposure to COVID-19
CPT/HCPCS: 36415; 71045; 74176; 80048; 80076; 81003; 81025; 83690; 83735; 84443; 84484; 85025; 85027; 87502; 87635; 93005; 96361; 96374; 99284; J2405

== ENCOUNTER 2021-11-22 16:00 | Outpatient (REF) | payer OTHER, BC, SELFPAY ==
--- NOTE | 2021-11-22 17:15 | PFT_ITS ---
FLOWS: FEV1 85% of predicted at 2.56 L. FVC 84% of predicted at 2.90 L. FEV1 to FVC ratio of 0.88. No bronchodilator response. LUNG VOLUMES: Total lung capacity 78% of predicted at 3.63 L. Residual volume 74% of predicted at 0.84 L. Slow vital capacity 80% of predicted at 2.79 L. Expiratory reserve volume 69% of predicted at 0.93 L. Diffusion capacity is normal. IMPRESSION: Mild restrictive ventilatory defect with no bronchodilator response. MD JUANITO Kearns/MODL / [id number]
== END 2021-11-22 16:01 | disposition home or self-care (01) ==
LOC: HO.RESP 16:00
PROVIDERS: PCP Hospitalist; Visit Provider Hospitalist
DX: J45.40 Moderate persistent asthma, uncomplicated (principal)
CPT/HCPCS: 94060; 94727; 94729

== ENCOUNTER 2021-12-29 12:02 | Outpatient (REF) | payer BC, SELFPAY ==
[2021-12-29 13:22] LABS: C Reactive Protein 0.17 mg/dL (< or = 0.50)
[2021-12-31 20:02] LABS: Transglutaminase Ab IgG <1.0 U/mL; Transglutaminase IgA <1.0 U/mL
[2022-01-03 15:02] LABS: Anti Nuclear Antibody Screen NEGATIVE (NEGATIVE)
== END 2021-12-29 12:03 | disposition home or self-care (01) ==
LOC: HO.LAB 12:02
PROVIDERS: PCP Hospitalist; Visit Provider Nurse Practitioner
DX: R11.0 Nausea (principal); R19.7 Diarrhea, unspecified; R68.81 Early satiety
CPT/HCPCS: 36415; 86003; 86038; 86039; 86140; 86364

== ENCOUNTER 2021-12-30 14:53 | Outpatient (REF) | payer BC, SELFPAY ==
[2022-01-07 16:56] LABS: Pancreatic Elastase-1 >500 mcg/g
== END 2021-12-30 14:54 | disposition home or self-care (01) ==
LOC: HO.LNP 14:53
PROVIDERS: Visit Provider Nurse Practitioner
DX: R11.0 Nausea (principal); R19.7 Diarrhea, unspecified; R68.81 Early satiety
CPT/HCPCS: 82656; 87338

== ENCOUNTER → 2022-06-14 08:34 | Outpatient (REF) | payer BC, SELFPAY ==
--- NOTE | ~2022-06-14 | NM_ITS ---
EXAMINATION: RADIONUCLIDE SOLID FOOD GASTRIC EMPTYING 4-HOUR STUDY CLINICAL INFORMATION: Diarrhea, unspecified. Weight loss. COMPARISON: No previous gastric emptying study is available for comparison. TECHNIQUE: A standard meal consisting of 4 oz of Egg Beaters brand equivalent tagged with 750 microcuries Tc-99m Sulfur Colloid, 8 oz water and 2 slices of toast with jelly was administered orally to the patient. Images were obtained using a dual head gamma camera in the anterior and posterior projections over of the stomach immediately post ingestion and at hourly intervals up to 4 hours post ingestion. The anterior and posterior counts at each time interval were averaged using the geometric mean and expressed as percentage of the immediate post ingestion counts. FINDINGS: There is good visualization of activity in the stomach immediately post ingestion. As the study progresses, there is progressively increasing small bowel activity visualized, and clearance of activity from the stomach. However, at the end of the study there is mild abnormal retention of activity in the stomach at 4 hours. Retention in the stomach at each time interval was: 1 hour 82% (normal 37%-90%) 2 hours 45% (normal 30%-60%) 3 hours 21% 4 hours 22% (normal 0%-10%) NM/NM gastric emptying study IMPRESSION: Abnormal study. There is mild abnormal retention of solid food in the stomach at 4 hours.
== END ==
LOC: HO.NUCMED 08:34
PROVIDERS: Visit Provider Nurse Practitioner
DX: R19.7 Diarrhea, unspecified (principal); R11.0 Nausea; R68.81 Early satiety
CPT/HCPCS: 78264; A9500; A9541

== ENCOUNTER → 2022-07-13 15:01 | Outpatient (BNVA) | payer BC, SELFPAY | PROVIDERS: PCP Hospitalist; Referring Provider Hospitalist; Visit Provider Nurse Practitioner | DX: Z13.89 Encounter for screening for other disorder (principal) ==

== ENCOUNTER → 2022-08-03 14:54 | Outpatient (BNVA) | payer BC, SELFPAY | PROVIDERS: PCP Hospitalist; Visit Provider Nurse Practitioner | DX: Z13.89 Encounter for screening for other disorder (principal) ==

== ENCOUNTER 2023-03-16 09:13 | Outpatient (AMB) | payer BC, SELFPAY ==
--- NOTE | 2023-03-16 11:51 | MHC.OFFWIV ---
Intake Vital Signs 03/16/23 12:09 Weight 128 lb 2 oz BP 124/76 Blood Pressure Location Lt brachial Position Sitting Pulse 98 Pulse Source Pulse Oximeter Temp 97.6 F Temp Source Oral Pulse Oximetry (%) 98 Oxygen Delivery Method Room Air Intake Visit Reasons: Est/flu like symptoms/[phone] Patient Tobacco Use Status: Never used Tobacco Allergies acetaminophen Allergy (Verified 03/16/23 12:11) Hives sulfamethoxazole [From Bactrim] Allergy (Verified 03/16/23 12:11) Hives trimethoprim [From Bactrim] Allergy (Verified 03/16/23 12:11) Hives Do you need a note to return to daycare/school/sports/work: Yes HPI Est/flu like symptoms/[phone] HPI Details 28 year old female patient presents today with cold/flu symptoms for the last 4 days. Reports temp up to 100.1, body aches, chills, nausea, and vomiting. Denies any shortness of breath, cough, sore throat. Denies known exposure to sick contacts however reports her boyfriend is an EMT and around many sick patients. [facility] Medical History Cold intolerance Asthma Pleuritic chest pain Asthma Insomnia Surgical History Hx of colonoscopy History of esophagogastroduodenoscopy (EGD) Hx of wisdom tooth extraction Family History Mother Hyperthyroidism Asthma Hypertension High cholesterol No family history of mental disorder Maternal Grandmother Asthma Hypothyroidism Hypertension High cholesterol Social History Housing: House Patient Tobacco Use Status: Never used Tobacco service: No Current occupational status: employed Cognitive needs: No Hearing needs: No Vision needs: No Review of Systems Const All systems reviewed & are unremarkable except as noted in HPI and below Physical Exam Vital Signs: Last Vital Signs Temp 97.6 F 03/16/23 12:09 Pulse 98 03/16/23 12:09 BP 124/76 03/16/23 12:09 Pulse Ox 98 03/16/23 12:09 Oxygen Delivery Method Room Air 03/16/23 12:09 Const General: cooperative and no acute distress HEENT Head: Yes normal to inspection Ears: hearing grossly normal bilaterally General nose exam: Normal external nose present and Normal nasal mucous membranes and turbinates present Face and sinus: Yes normal facial exam Mouth: Normal oral and palatal mucosa present and moist mucous membranes Throat: Yes posterior oropharynx normal (Mild erythema) Neck Neck: Yes no lymphadenopathy Resp Effort & Inspection: normal respiratory effort and able to speak in complete sentences Auscultation: clear to auscultation bilaterally Cardio Jugular venous distension: no JVD Palpation: normal PMI Rate: regular rate Rhythm: regular rhythm Skin General skin exam: no rashes or lesions noted Extrem General: Yes capillary refill normal and Yes no clubbing, cyanosis or edema Psych Appearance: grossly normal Mental Status: mental status grossly normal Speech and movement: Normal speech and movement present Assessment & Plan Assessment & Plan (1) Body aches: Code(s): R52 - Pain, unspecified Plan: Presentation consistent with viral illness. COVID/flu/RSV swab obtained. Patient aware she will be notified with results once these are available. Advised conservative measures for ongoing symptoms, including Tylenol/Motrin use, or cold/flu medication [id number]. I prescribed her Zofran for the nausea and vomiting. Reviewed indications, use, possible s/e. She has been able to eat/tolerate bland foods, which I encouraged she continue to do an advanced diet as tolerated. If she does not continue to improve with conservative measures, or if symptoms worsen/new symptoms develop, she should return to the clinic for further evaluation. She agrees to plan. Work note provided. (2) Nausea and vomiting: Code(s): R11.2 - Nausea with vomiting, unspecified Qualifiers: Vomiting type: unspecified Qualified Code(s): R11.2 - Nausea with vomiting, unspecified Orders: Orders SARS-CoV2/FLU/RSV Today R11.2 - Nausea with vomiting, unspecified, R52 - Pain, unspecified Medications: New ondansetron HCl 4 mg PO Q8H PRN 14 tabs 0RF nausea and vomiting R11.2 - Nausea with vomiting, unspecified Coding Level of Care Code Est Pt Level 3 (03490) Diagnoses Body aches R52 Nausea and vomiting, unspecified vomiting type R11.2 Vomiting type: unspecified
[2023-03-16 12:09] VITALS: BP 124/76; PULSE 98; TEMP 36.4; O2SAT 98
== END 2023-03-16 12:42 | disposition home or self-care (01) ==
PROVIDERS: PCP Hospitalist; Visit Provider Nurse Practitioner Family
DX: R52 Pain, unspecified (principal); R11.2 Nausea with vomiting, unspecified
CPT/HCPCS: 99213

== ENCOUNTER 2023-03-16 12:24 | Outpatient (REF) | payer BC, SELFPAY | END 2023-03-16 12:25 | disposition home or self-care (01) | LOC: HO.LAB 12:24 | PROVIDERS: Visit Provider Nurse Practitioner Family | DX: Z11.52 Encounter for screening for COVID-19 (principal); Z20.822 Contact with and (suspected) exposure to COVID-19; R52 Pain, unspecified; R11.2 Nausea with vomiting, unspecified | CPT/HCPCS: 0241U ==

== ENCOUNTER 2023-03-28 15:53 | Outpatient (AMB) | payer SELFPAY ==
--- NOTE | 2023-03-28 15:55 | MHC.OFFVIS ---
Intake Vital Signs 03/28/23 15:58 Height 5 ft 1 in Weight 129 lb 3.054 oz BMI 24.4 BP 117/75 Blood Pressure Location Rt brachial Position Sitting Pulse 86 Intake Visit Reasons: IBS follow up Intake Note: Patient presents to in office visit today in follow up of IBS. 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 She reports she is eating better but very small portions, abdominal pain comes and goes, and still throwing up a couple times a month. She also states that she still cycling back between diarrhea and constipation. 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 She just had an MRI at [facility] for this but no results yet. I'm unsure how this may be effecting the GI presentation. She has? mostly diarrhea, but did have some CIC ? r/t peanut butter. She is tolerating the reglan and has less vomiting, would like to try increasing it. Dicyclomine seemed to cause more diarrhea. She also feels her diarrhea is triggered by stress. I think we will try increasing the reglan and adding imipramine 10mg qhs. Wait for more info on pituitary work up. ROV 4 weeks. (2) Weight loss, abnormal: ?Code(s): R63.4 - Abnormal weight loss (3) Early satiety: ?Code(s): R68.81 - Early satiety ? ? ? Medications: New imipramine HCl 10 mg? PO BEDTIME 30 days 30 tabs 1 RF ? ? Changed From metoclopramide HCl 5 mg? PO QIDACHS 120 tabs 3RF K31.84 - Gastropar esis ? To metoclopramide HCl (Reglan) 10 mg (2 x 5 mg) PO QIDACHS 120 tab s 3RF K31.84 - Gastropar esis ? On Hold dicyclomine ?? Hol d Comment:? Doctor 's Order 20 mg? PO QID 120 tabs 3RF R19.7 - Diarrhea, unspecified ? CORRESPONDENCE On 08/09/22 @ 15:18 Chey Triplett Wrote To Ani Farris Oh, dear! But the good new, so far as I understand it, is that they treat this with a drug called?Cabergoline and, if needed surgery that has a quick recovery. But I am not an software test engineer. Good luck and God bless! On 08/08/22 @ 12:57 Ani Farris (Regarding Self / Same As Patient) Wrote To Chey Triplett Hi Dr. Triplett, Just letting you know, they found a 4mm tumor on my pituitary. I?m waiting to hear from an software test engineer for treatment options TODAY'S VISIT She is now having more CIC than diarrhea....but before this she had a long streak of good response to the imipramine and reglan and was having normal BM's. This lasted about for a couple of months. The bad period started about 5 weeks ago. No other changes, no new meds, no diet changes. She DID do the FODMAP diet and found many triggers, she is now eating the plainest food I can and hope for the best. she says the list is very long, incl garlic onioins, tomatoes, anything with seeds or skins. Despite normal pancreatic elastase, it sound that she could benefit form a digestive enzyme. Has a LOT of gas and bloating. Will start creon bid. She tried stopping the imipramine, but became very ill. This works better than the bentyl. She continues the reglan 10mgqidachs. Will start a trial of senna. She was told the mass in her pituitary was benign, but has follow up MRI in a year. It is not though to cause any of her sx. ROV 2 weeks. [facility] Medical History Early satiety Nausea Food allergy Viral syndrome Normal physical exam Cold intolerance Asthma Pleuritic chest pain Asthma Insomnia Surgical History Hx of colonoscopy History of esophagogastroduodenoscopy (EGD) Hx of wisdom tooth extraction Family History Mother Hyperthyroidism Asthma Hypertension High cholesterol No family history of mental disorder Maternal Grandmother Asthma Hypothyroidism Hypertension High cholesterol Social History Housing: House Patient Tobacco Use Status: Never used Tobacco service: No Current occupational status: employed Cognitive needs: No Hearing needs: No Vision needs: No Review of Systems Const Denies fatigue, Denies fever(s), Denies night sweats, Denies poor appetite and Denies weight loss Eyes Details: glasses Reports requires corrective lenses ENT Reports Normal hearing present, Denies dental pain, Denies dysphagia, Denies hearing loss, Denies mouth pain, Denies odynophagia, Denies throat swelling, Denies tongue swelling and Reports other (Dentition adequate) Card Reports no additional complaints Resp Reports no additional complaints GI Denies abdominal pain, Denies melena, Reports bloating, Denies hematochezia, Reports constipation, Denies GI cramping, Denies dysphagia, Reports excessive flatus, Denies early satiety, Denies heartburn, Reports diarrhea, Reports nausea, Denies odynophagia, Denies vomiting and Denies hematemesis Skin/Breast Denies pruritus, Denies lesions, Denies rash and Denies jaundice Neuro Reports Normal hearing present and Denies Abnormal speech present Endo Denies fatigue Aller/Immun Denies throat swelling and Denies tongue swelling Physical Exam Vital Signs: Last Vital Signs Pulse 86 03/28/23 15:58 BP 117/75 03/28/23 15:58 BMI result Body Mass Index 24.4 Const General: cooperative, no acute distress, well developed and well groomed Nutritional Appearance: average body habitus and well nourished Orientation/consciousness: oriented to person, oriented to place and oriented to time Limitations: No language barrier HEENT Head: Yes normocephalic and Yes atraumatic Eyes General: appearance normal, both eyes and all related structures Pupils: Equal, round and reactive pupils present Neck Neck: Yes normal visual inspection and Yes no lymphadenopathy Thyroid: Thyroid normal Resp Effort & Inspection: normal respiratory effort and able to speak in complete sentences Auscultation: clear to auscultation bilaterally Cardio Rate: regular rate Rhythm: regular rhythm Heart sounds: Normal, physiologic split S2 sound present Peripheral pulses: radial pulses present and posterior tibial pulses present GI Inspection: No distended and No Abdominal panniculus present Palpation (GI): Soft to palpation, nontender, no guarding, not rigid and No hepatosplenomegaly present Percussion: Yes normal to percussion Auscultation: normal bowel sounds Rectal Exam - Female: deferred Skin General skin exam: no rashes or lesions noted, turgor normal, skin not dry, no jaundice, No spider nevi and no striae Rashes: no rashes Nails: normal Neuro General: oriented to person, oriented to place and oriented to time Cranial nerves: Yes Equal, round and reactive pupils present and Yes Normal hearing present Speech: No Abnormal speech present Extrem General: Yes normal to inspection, No clubbing, No cyanosis and No edema Psych Appearance: grossly normal and well kempt Mental Status: mental status grossly normal Speech and movement: Normal speech and movement present Affect: normal affect Attitude: cooperative Thought process: Normal thought process present and not confabulating Thought content: Normal thought content present Insight: Limited insight present (Psych) Judgement: Limited judgement present (Psych) Assessment & Plan Assessment & Plan (1) Gastroparesis: Comment: ges 06/14/2022 IMPRESSION: Abnormal study. There is mild abnormal retention of solid food in the stomach at 4 hours. Code(s): K31.84 - Gastroparesis Plan: She is now having more CIC than diarrhea....but before this she had a long streak of good response to the imipramine and reglan and was having normal BM's. This lasted about for a couple of months. The bad period started about 5 weeks ago. No other changes, no new meds, no diet changes. She DID do the FODMAP diet and found many triggers, she is now eating the plainest food I can and hope for the best. she says the list is very long, incl garlic onioins, tomatoes, anything with seeds or skins. Despite normal pancreatic elastase, it sound that she could benefit form a digestive enzyme. Has a LOT of gas and bloating. Will start creon bid. She tried stopping the imipramine, but became very ill. This works better than the bentyl. She continues the reglan 10mgqidachs. Will start a trial of senna. She was told the mass in her pituitary was benign, but has follow up MRI in a year. It is not though to cause any of her sx. ROV 2 weeks. . (2) Hemorrhoids: Code(s): K64.9 - Unspecified hemorrhoids (3) Weight loss, abnormal: Code(s): R63.4 - Abnormal weight loss (4) Diarrhea: Code(s): R19.7 - Diarrhea, unspecified (5) Hyperprolactinemia: Code(s): E22.1 - Hyperprolactinemia (6) Pituitary microadenoma: Comment: Followed by [facility] endocrine Code(s): D35.2 - Benign neoplasm of pituitary gland (7) Chronic idiopathic constipation: Code(s): K59.04 - Chronic idiopathic constipation Medications: New metoclopramide HCl (Reglan) 10 mg PO QIDACHS 120 tabs 6RF K31.84 - Gastroparesis hydrocortisone 2.5% (Proctosol HC) BE SURE TO INCLUDE RECTAL APPICATOR!! [address] BID 30 grams 6RF hemorrhoids K64.9 - Unspecified hemorrhoids sennosides (Senna Laxative) 17.2 mg (2 x 8.6 mg) PO BEDTIME 60 tabs 6RF K59.04 - Chronic idiopathic constipation [id number] 24,000-76,000 -120,000 unit (Creon) administer with meals and/or snacks 2 caps PO BID 30 days 120 caps 3RF K58.9 - Irritable bowel syndrome without diarrhea Changed From imipramine HCl 10 mg PO BEDTIME 30 tabs 1RF To imipramine HCl 10 mg PO BEDTIME 90 days 90 tabs 1RF Discontinued ondansetron HCl Discontinued Reason: Doctor's Order 4 mg PO Q8H PRN 14 tabs 0RF nausea and vomiting R11.2 - Nausea with vomiting, unspecified dicyclomine Discontinued Reason: Doctor's Order 20 mg PO QID 120 tabs 3RF R19.7 - Diarrhea, unspecified Coding Level of Care Code Est Pt Level 4 (84615) Diagnoses Gastroparesis K31.84 Hemorrhoids K64.9 Weight loss, abnormal R63.4 Diarrhea R19.7 Hyperprolactinemia E22.1 Pituitary microadenoma D35.2 Chronic idiopathic constipation K59.04
[2023-03-28 15:58] VITALS: BP 117/75; PULSE 86; BMI 24.4
== END 2023-03-28 16:36 | disposition home or self-care (01) ==
PROVIDERS: PCP Hospitalist; Visit Provider Nurse Practitioner
DX: K31.84 Gastroparesis (principal); K64.9 Unspecified hemorrhoids; R63.4 Abnormal weight loss; R19.7 Diarrhea, unspecified; E22.1 Hyperprolactinemia; D35.2 Benign neoplasm of pituitary gland; K59.04 Chronic idiopathic constipation
CPT/HCPCS: 99214

== ENCOUNTER → 2023-03-28 15:53 | Outpatient (BNVA) | payer BC, SELFPAY | PROVIDERS: PCP Hospitalist; Visit Provider Nurse Practitioner ==